=== PATIENT | male | born 1940 | race Caucasian/White ===

== ENCOUNTER 2018-11-19 11:51 | Emergency (ER) | payer OTHER, MEDICARE ==
[~2018-11-19] VITALS: Ht 180.3 cm; Wt 136.1 kg
[~2018-11-19 11:51] MED LIST: ACTICIN 5% CREA60 G1 TOP; ACTOS; AVAPRO75 MG PO; GILPIZIDE; KEFLEX500 MG PO; METFORMIN HCL500 MG PO; NIASPAN; PIOGLITAZONE15 MG PO; PREDNISONE 20 M20 MG PO; TERBINAFINE; TRICOR; TRICOR145 MG PO
[2018-11-19] MEDS ORDERED: ACTOPLUS MET 11 EACH PO (12:02)
[2018-11-19] MEDS ORDERED: NORCO 5-325 TA1 EACH PO (13:39)
[2018-11-19 15:05] VITALS: BP 140/68
== END 2018-11-19 15:06 | disposition home or self-care (01) ==
LOC: M.ERS 11:51
DX: S22.42XA Multiple fractures of ribs, left side, initial encounter for closed fracture (principal); I10 Essential (primary) hypertension; E11.9 Type 2 diabetes mellitus without complications; W01.0XXA Fall on same level from slipping, tripping and stumbling without subsequent striking against object, initial encounter; Y92.89 Other specified places as the place of occurrence of the external cause; Y93.89 Activity, other specified; Y99.8 Other external cause status

== ENCOUNTER 2020-06-14 14:18 | Emergency (ER) | payer BC, MEDICARE ==
[~2020-06-14] VITALS: Ht 180.3 cm; Wt 142.9 kg
[~2020-06-14 14:18] MED LIST changes: +ACTOPLUS MET 11 EACH PO; +NORCO 5-325 TA1 EACH PO
[2020-06-14] MEDS ORDERED: KEFLEX500 M1 PO (15:17)
[2020-06-14 15:32] VITALS: BP 116/62
== END 2020-06-14 15:32 | disposition home or self-care (01) ==
LOC: M.ERS 14:18
DX: S51.811A Laceration without foreign body of right forearm, initial encounter (principal); I10 Essential (primary) hypertension; E11.9 Type 2 diabetes mellitus without complications; Z79.899 Other long term (current) drug therapy; W18.39XA Other fall on same level, initial encounter; Y99.8 Other external cause status; Y93.89 Activity, other specified; Y92.89 Other specified places as the place of occurrence of the external cause